=== PATIENT | female | born 1950 | race Caucasian/White ===

== ENCOUNTER → 2017-04-08 07:32 | Outpatient (CLI) | payer OTHER ==
[~2017-04-08 07:32] MED LIST: ANTIVERT PO; ANTIVERT12.5 MG PO; ANTIVERT25 M1 PO; CATAFLAM50 MG; CATAFLAM50 MG PO; FIORICET 50-321 EACH PO; FIORICET PO; FLEXERIL10 MG PO; GLUCOPHAGE XR750 MG PO; KETO10TA2 PO; LIPITOR 20 MG PO; LIPITOR20 MG PO; LISINOPRIL5 MG PO; METFORMIN HCL500 MG PO; PROVENTIL S1 ML/5 MG IH; PROVENTIL0.5 ML/2.5 IH; PROVENTIL3 ML/2.5 M IH; VOLTAREM 50 MG PO; VOLTAREN100 GM PO; ZANTAC300 MG PO; ZESTRIL5 MG; ZYRTEC10 M3 PO; ZYRTEC10 MG PO; fioricet PO
== END | disposition home or self-care (01) ==
LOC: PPHC 07:32
DX: L29.2 Pruritus vulvae (principal)

== ENCOUNTER → 2017-07-11 | Outpatient (CLI) | payer OTHER | END | disposition home or self-care (01) | LOC: PPHC 08:43 | DX: Z76.0 Encounter for issue of repeat prescription (principal) ==

== ENCOUNTER 2017-07-17 12:36 | Outpatient (CLI) | payer OTHER | END 2017-07-17 12:48 | disposition home or self-care (01) | LOC: MAMO-SONO 12:36 | DX: Z12.31 Encounter for screening mammogram for malignant neoplasm of breast (principal); N60.09 Solitary cyst of unspecified breast ==

== ENCOUNTER 2017-08-05 06:44 | Emergency (ER) | payer OTHER ==
[~2017-08-05] VITALS: Ht 160 cm; Wt 86.2 kg
[2017-08-05] MEDS ORDERED: PROTONIX40 MG PO (14:01)
[2017-08-05] MEDS ORDERED: CARAFATE1 GM/10 ML PO (14:01)
== END 2017-08-05 14:31 | disposition home or self-care (01) ==
LOC: ER 06:44
DX: K29.70 Gastritis, unspecified, without bleeding (principal)

== ENCOUNTER 2017-08-08 12:18 | Outpatient (CLI) | payer OTHER ==
[~2017-08-08 12:18] MED LIST changes: +CARAFATE1 GM/10 ML PO; +PROTONIX40 MG PO
== END 2017-08-08 12:19 | disposition home or self-care (01) ==
LOC: LAB 12:18
DX: Z00.00 Encounter for general adult medical examination without abnormal findings (principal); I10 Essential (primary) hypertension; E03.8 Other specified hypothyroidism; E78.00 Pure hypercholesterolemia, unspecified; N39.0 Urinary tract infection, site not specified; Z11.4 Encounter for screening for human immunodeficiency virus [HIV]; Z12.11 Encounter for screening for malignant neoplasm of colon; E55.9 Vitamin D deficiency, unspecified; Z21 Asymptomatic human immunodeficiency virus [HIV] infection status; R79.9 Abnormal finding of blood chemistry, unspecified; R79.89 Other specified abnormal findings of blood chemistry; R82.79 Other abnormal findings on microbiological examination of urine

== ENCOUNTER → 2017-08-09 12:03 | Outpatient (CLI) | payer OTHER | END | disposition home or self-care (01) | LOC: LAB 12:03 | DX: Z00.00 Encounter for general adult medical examination without abnormal findings (principal); I10 Essential (primary) hypertension; E03.8 Other specified hypothyroidism; E78.00 Pure hypercholesterolemia, unspecified; N39.0 Urinary tract infection, site not specified; Z11.4 Encounter for screening for human immunodeficiency virus [HIV]; Z12.11 Encounter for screening for malignant neoplasm of colon; E55.9 Vitamin D deficiency, unspecified; Z21 Asymptomatic human immunodeficiency virus [HIV] infection status; R79.9 Abnormal finding of blood chemistry, unspecified; R79.89 Other specified abnormal findings of blood chemistry ==

== ENCOUNTER 2017-08-11 13:00 | Outpatient (CLI) | payer OTHER | END 2017-08-11 13:07 | disposition home or self-care (01) | LOC: SONOGRAMA 13:00 | DX: N94.0 Mittelschmerz (principal); R10.2 Pelvic and perineal pain; N94.89 Other specified conditions associated with female genital organs and menstrual cycle ==

== ENCOUNTER 2017-12-27 13:01 | Emergency (ER) | payer OTHER ==
[~2017-12-27] VITALS: Ht 157.5 cm; Wt 86.2 kg
[2017-12-27] MEDS ORDERED: PEPCID AC20 MG PO (17:06)
[2017-12-27] MEDS ORDERED: INTESTINEX680 M1 PO (17:06)
[2017-12-27] MEDS ORDERED: AMOX-CLAV 875-1 EACH PO (17:06)
[2017-12-27] MEDS ORDERED: KETO10TA2 PO (17:06)
== END 2017-12-27 17:39 | disposition home or self-care (01) ==
LOC: ER 13:01
DX: L02.511 Cutaneous abscess of right hand (principal)

== ENCOUNTER 2018-01-20 07:13 | Emergency (ER) | payer OTHER ==
[~2018-01-20] VITALS: Ht 147.3 cm; Wt 86.2 kg
[~2018-01-20 07:13] MED LIST changes: +AMOX-CLAV 875-1 EACH PO; +INTESTINEX680 M1 PO; +PEPCID AC20 MG PO
[2018-01-20] MEDS ORDERED: ZYRTEC10 M3 (07:39)
[2018-01-20] MEDS ORDERED: BUTALB-ASPIRIN1 EACH (07:39)
[2018-01-20] MEDS ORDERED: SINGULAIR10 MG (07:39)
== END 2018-01-20 09:58 | disposition home or self-care (01) ==
LOC: ER 07:13
DX: S40.011A Contusion of right shoulder, initial encounter (principal); G44.309 Post-traumatic headache, unspecified, not intractable; W18.39XA Other fall on same level, initial encounter; Y93.89 Activity, other specified; Y92.098 Other place in other non-institutional residence as the place of occurrence of the external cause; Y99.8 Other external cause status

== ENCOUNTER 2018-04-28 13:11 | Outpatient (CLI) | payer OTHER ==
[~2018-04-28 13:11] MED LIST changes: +BUTALB-ASPIRIN1 EACH; +SINGULAIR10 MG; +ZYRTEC10 M3
== END 2018-04-28 14:00 | disposition home or self-care (01) ==
LOC: NUCLEAR 13:11
DX: I87.2 Venous insufficiency (chronic) (peripheral) (principal)

== ENCOUNTER 2018-11-27 07:58 | Outpatient (CLI) | payer OTHER | END 2018-11-27 08:03 | disposition home or self-care (01) | LOC: SONOGRAMA 07:58 | DX: N94.0 Mittelschmerz (principal); R10.2 Pelvic and perineal pain; N94.89 Other specified conditions associated with female genital organs and menstrual cycle ==

== ENCOUNTER 2018-12-14 10:56 | Outpatient (CLI) | payer OTHER | END 2018-12-14 10:59 | disposition home or self-care (01) | LOC: RAD 10:56 | DX: M25.561 Pain in right knee (principal) ==

== ENCOUNTER 2019-01-23 11:46 | Emergency (ER) | payer OTHER ==
[~2019-01-23] VITALS: Ht 149.9 cm; Wt 86.2 kg
== END 2019-01-23 14:54 | disposition home or self-care (01) ==
LOC: ER 11:46
DX: M17.11 Unilateral primary osteoarthritis, right knee (principal)

== ENCOUNTER 2019-02-11 14:02 | Inpatient (IN) | payer OTHER ==
[~2019-02-11] VITALS: Ht 139.7 cm; Wt 86.2 kg
[2019-03-04] MEDS ORDERED: PERCOCET 5-3251 EACH PO (14:11)
[2019-03-04] MEDS ORDERED: DUI500 PO (14:11)
[2019-03-04] MEDS ORDERED: ELIQUIS2.5 MG PO (14:11)
== END 2019-03-04 15:35 | DRG 470 ==
LOC: O/R 03-02 05:10 → SURG 03-02 08:15
PROVIDERS: ADMIT Orthopaedic Surgery
PROC: 0MNN0ZZ Release Right Knee Bursa and Ligament, Open Approach (ICD-10-PCS; 2019-03-02)
PROC: 0SRC0J9 Replacement of Right Knee Joint with Synthetic Substitute, Cemented, Open Approach (ICD-10-PCS; principal; 2019-03-02 10:00)
DX: M17.11 Unilateral primary osteoarthritis, right knee (principal); D62 Acute posthemorrhagic anemia; J45.31 Mild persistent asthma with (acute) exacerbation; E66.01 Morbid (severe) obesity due to excess calories; I10 Essential (primary) hypertension; E11.9 Type 2 diabetes mellitus without complications; Z79.4 Long term (current) use of insulin

== ENCOUNTER → 2019-09-03 09:03 | Outpatient (CLI) | payer OTHER ==
[~2019-09-03 09:03] MED LIST changes: +DUI500 PO; +ELIQUIS2.5 MG PO; +PERCOCET 5-3251 EACH PO
== END | disposition home or self-care (01) ==
LOC: LAB 09:03
PROVIDERS: ATTEND General Practice
DX: I10 Essential (primary) hypertension (principal); E11.65 Type 2 diabetes mellitus with hyperglycemia

== ENCOUNTER 2019-09-08 10:06 | Outpatient (CLI) | payer OTHER | END 2019-09-08 10:15 | disposition home or self-care (01) | LOC: MAMO-SONO 10:06 | PROVIDERS: ATTEND General Practice | DX: Z12.31 Encounter for screening mammogram for malignant neoplasm of breast (principal) ==

== ENCOUNTER 2019-10-02 18:23 | Outpatient (CLI) | payer OTHER | END 2019-10-02 18:31 | disposition home or self-care (01) | LOC: RAD 18:23 | PROVIDERS: ATTEND Internal Medicine | DX: M54.5 Low back pain (principal); M25.511 Pain in right shoulder ==

== ENCOUNTER 2020-03-22 12:26 | Outpatient (CLI) | payer OTHER | END 2020-03-22 22:22 | disposition home or self-care (01) | LOC: PPH VACUNA 12:26 | DX: Z23 Encounter for immunization (principal) ==

== ENCOUNTER 2020-05-12 13:51 | Outpatient (CLI) | payer OTHER | END 2020-05-12 13:54 | disposition home or self-care (01) | LOC: LAB 13:51 | PROVIDERS: ATTEND Internal Medicine | DX: E11.9 Type 2 diabetes mellitus without complications (principal); E78.49 Other hyperlipidemia; Z12.11 Encounter for screening for malignant neoplasm of colon; I10 Essential (primary) hypertension ==

== ENCOUNTER 2020-05-22 10:10 | Emergency (ER) | payer OTHER ==
[~2020-05-22] VITALS: Ht 157.5 cm; Wt 81.6 kg
[2020-05-22] MEDS ORDERED: KETO10TA2 PO (15:57)
[2020-05-22] MEDS ORDERED: ORPHENADRINE C100 MG PO (15:57)
== END 2020-05-22 16:13 ==
LOC: ER 10:10
DX: R10.11 Right upper quadrant pain (principal); R07.89 Other chest pain; N39.0 Urinary tract infection, site not specified

== ENCOUNTER 2020-05-31 13:19 | Outpatient (CLI) | payer OTHER ==
[~2020-05-31 13:19] MED LIST changes: +ORPHENADRINE C100 MG PO
== END 2020-05-31 13:20 | disposition home or self-care (01) ==
LOC: NUCLEAR 13:19
PROVIDERS: ATTEND Internal Medicine
DX: I73.9 Peripheral vascular disease, unspecified (principal)

== ENCOUNTER → 2020-08-08 15:19 | Outpatient (CLI) | payer OTHER | END | disposition home or self-care (01) | LOC: LAB 15:19 | PROVIDERS: ATTEND Internal Medicine | DX: N39.0 Urinary tract infection, site not specified (principal) ==

== ENCOUNTER → 2020-09-11 | Outpatient (CLI) | payer OTHER | END | disposition home or self-care (01) | LOC: MAMO-SONO 09:04 | PROVIDERS: ATTEND Internal Medicine | DX: Z12.31 Encounter for screening mammogram for malignant neoplasm of breast (principal); Z12.39 Encounter for other screening for malignant neoplasm of breast; Z12.11 Encounter for screening for malignant neoplasm of colon ==

== ENCOUNTER 2020-09-28 09:38 | Emergency (ER) | payer OTHER ==
[~2020-09-28] VITALS: Ht 157.5 cm; Wt 81.6 kg
== END 2020-09-28 10:45 | disposition home or self-care (01) ==
LOC: ER 09:38
DX: K64.5 Perianal venous thrombosis (principal)

== ENCOUNTER 2020-09-29 10:01 | Outpatient (CLI) | payer OTHER | END 2020-09-29 10:04 | disposition home or self-care (01) | LOC: NUCLEAR 10:01 | PROVIDERS: ATTEND Internal Medicine | DX: R06.00 Dyspnea, unspecified (principal); R06.02 Shortness of breath ==

== ENCOUNTER → 2020-10-06 13:08 | Outpatient (CLI) | payer OTHER | END | disposition home or self-care (01) | LOC: LAB 13:08 | PROVIDERS: ATTEND Internal Medicine | DX: I10 Essential (primary) hypertension (principal); E11.9 Type 2 diabetes mellitus without complications; E78.49 Other hyperlipidemia; Z12.11 Encounter for screening for malignant neoplasm of colon; E55.9 Vitamin D deficiency, unspecified ==

== ENCOUNTER → 2020-10-28 | Emergency (ER) | payer OTHER ==
[~2020-10-28] VITALS: Ht 160 cm; Wt 83.9 kg
== END | disposition home or self-care (01) ==
LOC: ER 00:44
DX: M79.661 Pain in right lower leg (principal)

== ENCOUNTER 2020-11-23 08:00 | Outpatient (CLI) | payer OTHER | END 2020-11-23 08:30 | disposition home or self-care (01) | LOC: PPH VACUNA 08:00 | DX: Z23 Encounter for immunization (principal) ==

== ENCOUNTER 2020-12-04 13:18 | Outpatient (CLI) | payer OTHER | END 2020-12-04 13:22 | disposition home or self-care (01) | LOC: LAB 13:18 | PROVIDERS: ATTEND Obstetrics & Gynecology | DX: E03.8 Other specified hypothyroidism (principal); E78.01 Familial hypercholesterolemia; N39.0 Urinary tract infection, site not specified; Z11.4 Encounter for screening for human immunodeficiency virus [HIV]; E55.9 Vitamin D deficiency, unspecified; Z21 Asymptomatic human immunodeficiency virus [HIV] infection status; R79.89 Other specified abnormal findings of blood chemistry ==

== ENCOUNTER 2020-12-13 12:47 | Outpatient (CLI) | payer OTHER | END 2020-12-13 13:04 | disposition home or self-care (01) | LOC: SONOGRAMA 12:47 | PROVIDERS: ATTEND Obstetrics & Gynecology | DX: R10.2 Pelvic and perineal pain (principal); N94.0 Mittelschmerz; N94.89 Other specified conditions associated with female genital organs and menstrual cycle ==

== ENCOUNTER 2021-01-31 08:00 | Outpatient (CLI) | payer OTHER | END 2021-01-31 08:30 | disposition home or self-care (01) | LOC: PPH VACUNA 08:00 | PROVIDERS: ATTEND Emergency Medicine Pediatric Emergency Medicine | DX: Z23 Encounter for immunization (principal) ==

== ENCOUNTER 2021-06-15 12:03 | Outpatient (CLI) | payer OTHER | END 2021-06-15 12:07 | disposition home or self-care (01) | LOC: SONOGRAMA 12:03 | PROVIDERS: ATTEND Physical Medicine & Rehabilitation | DX: M65.4 Radial styloid tenosynovitis [de Quervain] (principal) ==

== ENCOUNTER 2021-08-30 10:45 | Outpatient (CLI) | payer OTHER ==
[~2021-08-30 10:45] MED LIST changes: +PREGABALIN25 MG PO
== END 2021-08-30 10:49 | disposition home or self-care (01) ==
LOC: LAB 10:45
PROVIDERS: ATTEND Obstetrics & Gynecology
DX: Z00.00 Encounter for general adult medical examination without abnormal findings (principal); I10 Essential (primary) hypertension; E03.9 Hypothyroidism, unspecified; E78.00 Pure hypercholesterolemia, unspecified; N39.0 Urinary tract infection, site not specified; Z11.4 Encounter for screening for human immunodeficiency virus [HIV]; Z12.11 Encounter for screening for malignant neoplasm of colon; E55.9 Vitamin D deficiency, unspecified; Z21 Asymptomatic human immunodeficiency virus [HIV] infection status; R79.9 Abnormal finding of blood chemistry, unspecified; R79.89 Other specified abnormal findings of blood chemistry

== ENCOUNTER 2021-09-13 12:07 | Outpatient (CLI) | payer OTHER | END 2021-09-13 12:13 | disposition home or self-care (01) | LOC: MAMO-SONO 12:07 | PROVIDERS: ATTEND Obstetrics & Gynecology | DX: N94.0 Mittelschmerz (principal); R10.2 Pelvic and perineal pain; N94.89 Other specified conditions associated with female genital organs and menstrual cycle; N63 Unspecified lump in breast; N64.0 Fissure and fistula of nipple; N64.9 Disorder of breast, unspecified ==

== ENCOUNTER 2021-10-04 15:18 | Outpatient (CLI) | payer OTHER | END 2021-10-04 15:22 | disposition home or self-care (01) | LOC: RAD 15:18 | PROVIDERS: ATTEND Internal Medicine | DX: M54.50 Low back pain, unspecified (principal) ==

== ENCOUNTER 2021-12-05 08:00 | Outpatient (CLI) | payer OTHER | END 2021-12-05 08:05 | disposition home or self-care (01) | LOC: PPH VACUNA 08:00 | PROVIDERS: ATTEND Emergency Medicine Pediatric Emergency Medicine | DX: Z23 Encounter for immunization (principal) ==

== ENCOUNTER 2022-02-06 12:44 | Outpatient (CLI) | payer OTHER ==
[~2022-02-06 12:44] MED LIST changes: +DOLOGESIC 500-1 EACH PO; +LEVSIN/SL0.125 MG SL
== END 2022-02-06 12:46 | disposition home or self-care (01) ==
LOC: LAB 12:44
PROVIDERS: ATTEND Internal Medicine Gastroenterology
DX: K57.30 Diverticulosis of large intestine without perforation or abscess without bleeding (principal); R10.13 Epigastric pain

== ENCOUNTER 2022-02-19 12:39 | Outpatient (CLI) | payer OTHER | END 2022-02-19 12:40 | disposition home or self-care (01) | LOC: LAB 12:39 | PROVIDERS: ATTEND Internal Medicine Gastroenterology | DX: Z20.822 Contact with and (suspected) exposure to COVID-19 (principal); Z20.828 Contact with and (suspected) exposure to other viral communicable diseases; Z11.52 Encounter for screening for COVID-19 ==

== ENCOUNTER 2022-03-27 07:38 | Outpatient (CLI) | payer OTHER | END 2022-03-27 07:46 | disposition home or self-care (01) | LOC: TOM 07:38 | PROVIDERS: ATTEND Internal Medicine Gastroenterology | DX: K57.30 Diverticulosis of large intestine without perforation or abscess without bleeding (principal); Z86.010 Personal history of colon polyps; K56.600 Partial intestinal obstruction, unspecified as to cause ==

== ENCOUNTER 2022-08-15 12:41 | Outpatient (CLI) | payer OTHER | END 2022-08-15 12:43 | disposition home or self-care (01) | LOC: RAD 12:41 | PROVIDERS: ATTEND Internal Medicine | DX: M25.511 Pain in right shoulder (principal) ==

== ENCOUNTER 2022-11-21 20:16 | Emergency (ER) | payer OTHER ==
[~2022-11-21] VITALS: Ht 157.5 cm; Wt 72.6 kg
[2022-11-22] MEDS ORDERED: MELOXICAM15 MG PO (04:27)
== END 2022-11-22 04:54 ==
LOC: ER 20:16
PROVIDERS: General Practice
DX: R07.9 Chest pain, unspecified (principal); I10 Essential (primary) hypertension; Z91.013 Allergy to seafood

== ENCOUNTER 2022-12-13 02:00 | Outpatient (CLI) | payer OTHER ==
[~2022-12-13 02:00] MED LIST changes: +MELOXICAM15 MG PO
== END 2022-12-13 02:10 | disposition home or self-care (01) ==
LOC: PPH VACUNA 02:00
PROVIDERS: ATTEND Emergency Medicine Pediatric Emergency Medicine
DX: Z23 Encounter for immunization (principal)
CPT/HCPCS: 90686; G0008

== ENCOUNTER 2023-05-22 07:34 | Outpatient (CLI) | payer OTHER ==
[2023-05-22 09:07] LABS: PH,URINE 5.5 (5.0-8.0); URINE APPEARANCE Clear; URINE BILIRRUBIN Negative (NEGATIVE); URINE BLOOD Negative; URINE COLOR Yellow; URINE GLUCOSE Negative (NEGATIVE); URINE LEUKOCYTE Trace; URINE NITRATE Negative; URINE PROTEIN Negative (NEGATIVE)
[2023-05-22 09:09] LABS: HEMATOCRIT 37.1 % (36.0-45.00); HEMOGLOBIN 12.3 g/dL (12.0-15.00); MEAN CELL VOLUME 88.6 fL (80.00-100.00); MEAN CORPUSCULAR HEMOGLOBIN 29.4 pg (27.00-32.0); MEAN CORPUSCULAR HGB CONC 33.2 g/dl (32.0-36.0); PLATELET COUNT 262 K/uL (150-450); RED BLOOD COUNT 4.19 M/uL (4.00-6.00); RED CELL DISTRIBUTION WIDTH 12.6 % (11.5-14.5)
[2023-05-22 09:12] LABS: URINE EPITHELIAL CELLS 14.9 uL (0.0-38.8); URINE RBC 3.3 uL (0.0-20.8); URINE WBC 44.9 uL (0.0-23.2)
[2023-05-22 09:37] LABS: ALBUMIN 3.8 gm/dL (3.4-5.0); BILIRUBIN TOTAL 0.25 mg/dL (0.3-1.2); CALCIUM 9.3 mg/dL (8.5-10.1); CHOL HDL RATIO 3.3 (0-5.0); CREATININE SERUM 1.15 mg/dL (0.55-1.02); GFR 46.51; POTASSIUM 4.09 mEq/L (3.5-5.1); TOTAL PROTEIN 6.8 gm/dL (6.4-8.2); TSH 2.11 uIU/mL (0.358-3.74)
== END 2023-05-22 07:42 | disposition home or self-care (01) ==
LOC: LAB 07:34
PROVIDERS: ATTEND Internal Medicine
DX: E03.9 Hypothyroidism, unspecified (principal); E11.21 Type 2 diabetes mellitus with diabetic nephropathy; N39.9 Disorder of urinary system, unspecified; E78.2 Mixed hyperlipidemia; E11.65 Type 2 diabetes mellitus with hyperglycemia; Z12.11 Encounter for screening for malignant neoplasm of colon; D64.9 Anemia, unspecified

== ENCOUNTER 2023-06-12 12:22 | Outpatient (CLI) | payer OTHER | END 2023-06-12 12:23 | disposition home or self-care (01) | LOC: NUCLEAR 12:22 | PROVIDERS: ATTEND Internal Medicine | DX: M81.0 Age-related osteoporosis without current pathological fracture (principal) ==

== ENCOUNTER 2023-09-22 12:01 | Outpatient (CLI) | payer OTHER | END 2023-09-22 12:08 | disposition home or self-care (01) | LOC: MAMO-SONO 12:01 | DX: N60.11 Diffuse cystic mastopathy of right breast (principal); N60.12 Diffuse cystic mastopathy of left breast ==

== ENCOUNTER 2023-10-27 06:35 | Emergency (ER) | payer OTHER ==
[~2023-10-27] VITALS: Ht 157.5 cm; Wt 81.6 kg
[~2023-10-27 06:35] MED LIST changes: +CATAFLAN PO; +DIABETIC SILTU118 M1 PO; +FIORINAL-COD 31 EACH PO; +GLUMETZA500 MG; +NAPROXEN375 MG PO; +PAXLOVID 300-11 EACH PO; +PROVENTIL HFA6.7 GM IH; +SINGULAIR4 M1; +VENTOLIN HFA18 GM IH; +ZESTRIL5 MG PO
[2023-10-27] MEDS ORDERED: METFORMIN HCL500 M3 (06:44)
[2023-10-27] MEDS ORDERED: FUROsemide 20 MG TABLET PO STA (07:43)
[2023-10-27] MEDS ORDERED: KETOROLAC TROMETHAMINE 10 MG TABLET PO STA (07:56)
[2023-10-27 08:23] LABS: HEMATOCRIT 36.6 % (36.0-45.00); HEMOGLOBIN 12.4 g/dL (12.0-15.00); MEAN CELL VOLUME 86.7 fL (80.00-100.00); MEAN CORPUSCULAR HEMOGLOBIN 29.4 pg (27.00-32.0); MEAN CORPUSCULAR HGB CONC 33.9 g/dl (32.0-36.0); PLATELET COUNT 272 K/uL (150-450); RED BLOOD COUNT 4.23 M/uL (4.00-6.00); RED CELL DISTRIBUTION WIDTH 13.1 % (11.5-14.5)
[2023-10-27 08:34] LABS: PH,URINE 5.5 (5.0-8.0); URINE APPEARANCE Cloudy; URINE BILIRRUBIN Negative (NEGATIVE); URINE BLOOD Negative; URINE COLOR Yellow; URINE GLUCOSE Negative (NEGATIVE); URINE KETONE Negative (NEGATIVE); URINE LEUKOCYTE Negative; URINE NITRATE Negative; URINE PROTEIN Negative (NEGATIVE); URINE UROBILINOGEN 0.2 E.U./dl
[2023-10-27 08:35] LABS: URINE BACTERIA 72.9 uL (0.0-1933); URINE EPITHELIAL CELLS 8.1 uL (0.0-38.8); URINE WBC 13.2 uL (0.0-23.2)
[2023-10-27 08:47] LABS: URINE CAST 0.15 uL (0.0-1.40)
[2023-10-27 08:51] LABS: ALBUMIN 3.8 gm/dL (3.4-5.0); BILIRUBIN TOTAL 0.36 mg/dL (0.3-1.2); CALCIUM 9.5 mg/dL (8.5-10.1); CREATININE SERUM 0.97 mg/dL (0.55-1.02); GFR 56.45; GLOBULINA 3.3 G/DL (2.4-3.5); POTASSIUM 4.06 mEq/L (3.5-5.1); TOTAL PROTEIN 7.1 gm/dL (6.4-8.2)
== END 2023-10-27 13:57 | disposition home or self-care (01) ==
LOC: ER 06:36
PROVIDERS: General Practice
DX: R60.0 Localized edema (principal); E11.9 Type 2 diabetes mellitus without complications; Z79.84 Long term (current) use of oral hypoglycemic drugs; I10 Essential (primary) hypertension; Z91.013 Allergy to seafood

== ENCOUNTER 2023-12-05 06:54 | Emergency (ER) | payer OTHER ==
[~2023-12-05] VITALS: Ht 157.5 cm; Wt 81.6 kg
[~2023-12-05 06:54] MED LIST changes: +METFORMIN HCL500 M3
[2023-12-05] MEDS ORDERED: KETOROLAC TROMETHAMINE 60 MG VIAL IM STA (08:37)
[2023-12-05] MEDS ORDERED: KETOROLAC TROMETHAMINE 60 MG VIAL IM ONE (09:08)
== END 2023-12-05 09:20 | disposition home or self-care (01) ==
LOC: ER 06:54
DX: E11.40 Type 2 diabetes mellitus with diabetic neuropathy, unspecified (principal); I10 Essential (primary) hypertension; Z79.84 Long term (current) use of oral hypoglycemic drugs; Z91.013 Allergy to seafood

== ENCOUNTER 2023-12-17 11:23 | Outpatient (CLI) | payer OTHER | END 2023-12-17 11:24 | disposition home or self-care (01) | LOC: LAB 11:23 | PROVIDERS: ATTEND Preventive Medicine Occupational Medicine | DX: B19.10 Unspecified viral hepatitis B without hepatic coma (principal) ==

== ENCOUNTER 2023-12-30 01:10 | Outpatient (CLI) | payer OTHER | END 2023-12-30 01:30 | disposition home or self-care (01) | LOC: PPH VACUNA 01:10 | PROVIDERS: ATTEND Emergency Medicine Pediatric Emergency Medicine | DX: Z23 Encounter for immunization (principal) ==

== ENCOUNTER → 2024-01-19 12:20 | Outpatient (CLI) | payer OTHER ==
[2024-01-19 12:56] LABS: HEMATOCRIT 36.8 % (36.0-45.00); MEAN CELL VOLUME 88.3 fL (80.00-100.00); MEAN CORPUSCULAR HEMOGLOBIN 28.9 pg (27.00-32.0); MEAN CORPUSCULAR HGB CONC 32.7 g/dl (32.0-36.0); PLATELET COUNT 312 K/uL (150-450); RED BLOOD COUNT 4.17 M/uL (4.00-6.00); RED CELL DISTRIBUTION WIDTH 12.8 % (11.5-14.5)
[2024-01-19 12:58] LABS: URINE APPEARANCE Clear; URINE BILIRRUBIN Negative (NEGATIVE); URINE BLOOD Negative; URINE COLOR Yellow; URINE GLUCOSE Negative (NEGATIVE); URINE KETONE Negative (NEGATIVE); URINE LEUKOCYTE Trace; URINE NITRATE Negative; URINE PROTEIN Negative (NEGATIVE); URINE UROBILINOGEN 0.2 E.U./dl
[2024-01-19 12:59] LABS: URINE BACTERIA 67.9 uL (0.0-1933); URINE EPITHELIAL CELLS 13.9 uL (0.0-38.8); URINE RBC 2.1 uL (0.0-20.8); URINE WBC 16.6 uL (0.0-23.2)
[2024-01-19 14:39] LABS: BILIRUBIN TOTAL 0.4 mg/dL (0.3-1.2); CALCIUM 9.2 mg/dL (8.5-10.1); CHOL HDL RATIO 2.2 (0-5.0); CREATININE SERUM 1.15 mg/dL (0.55-1.02); GFR 46.38; GLOBULINA 3.1 G/DL (2.4-3.5); POTASSIUM 4.7 mEq/L (3.5-5.1); TOTAL PROTEIN 7.1 gm/dL (6.4-8.2); TSH 1.01 uIU/mL (0.358-3.74)
== END | disposition home or self-care (01) ==
LOC: LAB 12:20
PROVIDERS: ATTEND Internal Medicine
DX: E03.9 Hypothyroidism, unspecified (principal); N39.0 Urinary tract infection, site not specified; E11.21 Type 2 diabetes mellitus with diabetic nephropathy; E78.2 Mixed hyperlipidemia; E11.65 Type 2 diabetes mellitus with hyperglycemia; Z12.11 Encounter for screening for malignant neoplasm of colon; D64.9 Anemia, unspecified

== ENCOUNTER 2024-02-12 12:08 | Outpatient (CLI) | payer OTHER ==
[2024-02-12 13:25] LABS: ob NEGATIVE (NEGATIVE)
== END 2024-02-12 12:09 | disposition home or self-care (01) ==
LOC: LAB 12:08
PROVIDERS: ATTEND Internal Medicine
DX: E03.9 Hypothyroidism, unspecified (principal); E11.21 Type 2 diabetes mellitus with diabetic nephropathy; N39.9 Disorder of urinary system, unspecified; E78.2 Mixed hyperlipidemia; E11.65 Type 2 diabetes mellitus with hyperglycemia; Z12.11 Encounter for screening for malignant neoplasm of colon; D64.9 Anemia, unspecified; E55.9 Vitamin D deficiency, unspecified

== ENCOUNTER 2024-03-21 06:09 | Emergency (ER) | payer OTHER ==
[~2024-03-21] VITALS: Ht 157.5 cm; Wt 81.6 kg
[2024-03-21] MEDS ORDERED: KETOROLAC TROMETHAMINE 30 MG VIAL IM STA (08:54)
[2024-03-21] MEDS ORDERED: KETOROLAC TROMETHAMINE 60 MG VIAL IM ONE (09:02)
[2024-03-21 09:28] LABS: HEMATOCRIT 35.2 % (36.0-45.00); HEMOGLOBIN 11.7 g/dL (12.0-15.00); MEAN CELL VOLUME 87.2 fL (80.00-100.00); MEAN CORPUSCULAR HGB CONC 33.3 g/dl (32.0-36.0); PLATELET COUNT 284 K/uL (150-450); RED BLOOD COUNT 4.04 M/uL (4.00-6.00); RED CELL DISTRIBUTION WIDTH 13.1 % (11.5-14.5)
[2024-03-21 11:11] LABS: URIC ACID 5.1 mg/dL (2.5-7.5)
[2024-03-21 11:13] LABS: C-REACTIVE PROTEIN 2.51 MG/DL (0.00-0.29)
== END 2024-03-21 12:12 | disposition home or self-care (01) ==
LOC: ER 06:09
PROVIDERS: General Practice
DX: M25.562 Pain in left knee (principal); E11.9 Type 2 diabetes mellitus without complications; Z79.84 Long term (current) use of oral hypoglycemic drugs; Z91.013 Allergy to seafood

== ENCOUNTER 2024-03-22 10:23 | Outpatient (CLI) | payer OTHER ==
[2024-03-22 11:03] LABS: SYNOVIAL FLUID COLOR YELLOW
[2024-03-22 11:04] LABS: SYNOVIAL FLUID APPEARANCE CLOUDY
[2024-03-22 12:04] LABS: MONONUCLEAR 4 %; POLYMORPHONUCLEAR 96 %
== END 2024-03-22 10:28 | disposition home or self-care (01) ==
LOC: LAB 10:23
PROVIDERS: ATTEND Orthopaedic Surgery
DX: M25.462 Effusion, left knee (principal)

== ENCOUNTER 2024-04-13 10:32 | Outpatient (CLI) | payer OTHER | END 2024-04-13 10:36 | disposition home or self-care (01) | LOC: SONOGRAMA 10:32 | PROVIDERS: ATTEND Obstetrics & Gynecology | DX: R10.2 Pelvic and perineal pain (principal) ==

== ENCOUNTER 2024-05-17 04:50 | Day surgery (SDC) | payer OTHER ==
[2024-05-07 11:01] VITALS: BP 159/79
[2024-05-07 11:40] LABS: HEMATOCRIT 38.3 % (36.0-45.00); HEMOGLOBIN 12.5 g/dL (12.0-15.00); MEAN CORPUSCULAR HEMOGLOBIN 29.1 pg (27.00-32.0); MEAN CORPUSCULAR HGB CONC 32.7 g/dl (32.0-36.0); PLATELET COUNT 306 K/uL (150-450); RED CELL DISTRIBUTION WIDTH 13.9 % (11.5-14.5)
[2024-05-07 11:52] LABS: PH,URINE 5.5 (5.0-8.0); URINE APPEARANCE Clear; URINE BILIRRUBIN Negative (NEGATIVE); URINE BLOOD Negative; URINE COLOR Yellow; URINE GLUCOSE Negative (NEGATIVE); URINE KETONE Negative (NEGATIVE); URINE LEUKOCYTE Negative; URINE NITRATE Negative; URINE PROTEIN Negative (NEGATIVE); URINE UROBILINOGEN 0.2 E.U./dl
[2024-05-07 11:53] LABS: URINE BACTERIA 61.1 uL (0.0-1933); URINE EPITHELIAL CELLS 5.8 uL (0.0-38.8); URINE WBC 6.4 uL (0.0-23.2)
[2024-05-07 11:57] LABS: INR 0.99; PARTIAL THROMBOPLASTIN TIME 25.4 SECONDS (22.0-34.0); PROTHROMBIN TIME 10.8 SECONDS (9.0-11.5)
[2024-05-07 12:33] LABS: ALBUMIN 3.9 gm/dL (3.4-5.0); BILIRUBIN TOTAL 0.46 mg/dL (0.3-1.2); CALCIUM 10.1 mg/dL (8.5-10.1); CREATININE SERUM 1.25 mg/dL (0.55-1.02); GFR 42.13; GLOBULINA 3.4 G/DL (2.4-3.5); POTASSIUM 4.86 mEq/L (3.5-5.1); TOTAL PROTEIN 7.3 gm/dL (6.4-8.2)
[2024-05-07 12:33] LABS: URINE CAST 0.14 uL (0.0-1.40); URINE RBC 1.9 uL (0.0-20.8)
[~2024-05-17] VITALS: Ht 157.5 cm; Wt 73.9 kg
[2024-05-17] MEDS ORDERED: ONDANSETRON HCL 2 MG/ML VIAL IV ONE (09:15)
== END 2024-05-17 14:10 | disposition home or self-care (01) ==
LOC: CIR.AMB 04:50
PROVIDERS: ATTEND Obstetrics & Gynecology
DX: N95.0 Postmenopausal bleeding (principal); Z91.013 Allergy to seafood; I10 Essential (primary) hypertension; E78.5 Hyperlipidemia, unspecified; J45.909 Unspecified asthma, uncomplicated

== ENCOUNTER 2024-07-05 23:55 | Emergency (ER) | payer OTHER ==
[~2024-07-05] VITALS: Ht 157.5 cm; Wt 72.6 kg
[2024-07-06] MEDS ORDERED: METFORMIN HCL500 M3 PO (00:07)
[2024-07-06] MEDS ORDERED: ZESTRIL20 MG PO (00:07)
[2024-07-06] MEDS ORDERED: KETOROLAC TROMETHAMINE 60 MG VIAL IM STA (03:18)
[2024-07-06] MEDS ORDERED: ACETAMINOPHEN 500 MG GEL..CAP PO STA (03:18)
[2024-07-06] MEDS ORDERED: ACETAMINOPHEN 500 MG GEL..CAP PO ONE (03:25)
[2024-07-06] MEDS ORDERED: KETOROLAC TROMETHAMINE 60 MG VIAL IM ONE (03:25)
== END 2024-07-06 03:44 | disposition home or self-care (01) ==
LOC: ER 23:55
DX: M77.8 Other enthesopathies, not elsewhere classified (principal); Z91.013 Allergy to seafood

== ENCOUNTER 2024-08-13 06:13 | Emergency (ER) | payer OTHER ==
[~2024-08-13] VITALS: Ht 157.5 cm; Wt 72.6 kg
[~2024-08-13 06:13] MED LIST changes: +METFORMIN HCL500 M3 PO; +ZESTRIL20 MG PO
[2024-08-13 06:34] VITALS: BP 148/75; O2SAT 98
[2024-08-13] MEDS ORDERED: ACETAMINOPHEN 500 MG GEL..CAP PO STA (08:35)
[2024-08-13] MEDS ORDERED: ACETAMINOPHEN 500 MG GEL..CAP PO ONE (08:54)
[2024-08-13 08:59] LABS: COVID-19 AG POSITIVE (NEGATIVE)
[2024-08-13 09:04] LABS: BASO % 0.3 % (0.1-1.2); EOS # 0.07 (0.04-0.54); EOS % 0.9 % (0.7-7.0); HEMATOCRIT 36.6 % (34.1-44.9); HEMOGLOBIN 11.7 g/dL (11.2-15.7); LYMPH # 1.38 (1.18-3.74); LYMPH % 17.3 % (19.3-53.1); MEAN CORPUSCULAR HEMOGLOBIN 28.2 pg (25.6-32.2); MONO # 1.79 (0.24-0.82); NEUT # 4.68 (1.56-6.13); NEUT % 58.6 % (34.0-71.1); PLATELET COUNT 234 K/uL (163-369); RED BLOOD COUNT 4.15 M/uL (3.93-5.22); RED CELL DISTRIBUTION WIDTH 12.7 % (11.6-14.4)
[2024-08-13 09:05] LABS: MONO % 22.4 % (4.7-12.5)
[2024-08-13 09:13] LABS: INFLUENZA A AG NEGATIVE (NEGATIVE)
[2024-08-13 09:40] LABS: CALCIUM 9.2 mg/dL (8.5-10.1); CREATININE SERUM 1.1 mg/dL (0.55-1.02); GFR 48.82; POTASSIUM 3.9 mEq/L (3.5-5.1)
== END 2024-08-13 10:17 | disposition home or self-care (01) ==
LOC: ER 06:13
PROVIDERS: General Practice
DX: U07.1 COVID-19 (principal); E11.9 Type 2 diabetes mellitus without complications; Z79.84 Long term (current) use of oral hypoglycemic drugs; I50.9 Heart failure, unspecified; Z91.013 Allergy to seafood; I10 Essential (primary) hypertension; N28.9 Disorder of kidney and ureter, unspecified